=== PATIENT | female | born 1945 | race Two or more races ===

== ENCOUNTER → 2023-03-24 | Emergency (ER) | payer OTHER, BC ==
[~2023-03-24] VITALS: Ht 157.5 cm; Wt 68.0 kg
[~2023-03-24] MED LIST: AMLODIPINE-OLM1 EAC2 PO
== END | disposition left against medical advice (07) ==
LOC: ER 13:36
DX: K52.9 Noninfective gastroenteritis and colitis, unspecified (principal); A08.8 Other specified intestinal infections; I10 Essential (primary) hypertension; E03.8 Other specified hypothyroidism; Z88.2 Allergy status to sulfonamides; Z88.0 Allergy status to penicillin